=== PATIENT | male | born 1940 | race Caucasian/White ===

== ENCOUNTER 2017-05-09 10:32 | Emergency (ER) | payer OTHER, MEDICARE ==
[2017-05-09 11:18] VITALS: BP 153/63
--- NOTE | 2017-05-09 11:37 | UC ---
Knee Pain HPI - HPI Summary HPI Summary: RIGHT KNEE PAIN X 1 DAY TWISTED HIS RIGHT KNEE THIS MORNING PAIN WITH WALKING, NO SWELLING, NO REDNESS - History of Current Complaint Chief Complaint: UCLowerExtremity Stated Complaint: RIGHT KNEE INJURY Time Seen by Provider: 05/09/17 11:19 Hx Obtained From: Patient Onset/Duration: Sudden Onset, Lasting Days - 1 DAY, Still Present Severity Initially: Moderate Severity Currently: Moderate Character: Aching Aggravating Factor(s): Movement, Weight Bearing, Prolonged Standing, Stairs Alleviating Factor(s): Rest Associated Signs And Symptoms: Negative: Swelling, Redness, Bruising, Fever, Weakness, Numbness, Tingling - Allergies/Home Medications Allergies/Adverse Reactions: Allergies Allergy/AdvReac Type Severity Reaction Status Date / Time bee stings Allergy Severe swelling/re Uncoded 05/09/17 11:11 spiratory PMH/Surg Hx/FS Hx/Imm Hx Cardiovascular History: Cardiac Disease, Pacemaker/ICD - Surgical History Surgical History: Yes Surgery Procedure, Year, and Place: appendectomy. pacemaker - Family History Known Family History: Positive: Hypertension - Social History Alcohol Use: Weekly Alcohol Amount: once a week Substance Use Type: None Smoking Status (MU): Light Every Day Tobacco Smoker Type: Cigarettes Amount Used/How Often: 4-5 daily Household Exposure Type: Cigarettes - Immunization History Most Recent Influenza Vaccination: no Review of Systems Constitutional: Negative Skin: Negative Eyes: Negative ENT: Negative Respiratory: Negative All Other Systems Reviewed And Are Negative: Yes Physical Exam Triage Information Reviewed: Yes Appearance: Well-Appearing, No Pain Distress, Well-Nourished Vital Signs: Initial Vital Signs Temp 99 F 05/09/17 11:12 Pulse 93 05/09/17 11:12 Resp 18 05/09/17 11:12 BP 153/63 05/09/17 11:12 Pulse Ox 96 05/09/17 11:12 Vital Signs Reviewed: Yes Eyes: Positive: Conjunctiva Clear ENT: Positive: Normal ENT inspection, Hearing grossly normal, Pharynx normal Neck: Positive: Supple, Nontender, No Lymphadenopathy Respiratory: Positive: Chest non-tender, Lungs clear, Normal breath sounds Cardiovascular: Positive: RRR, No Murmur, Pulses Normal, Brisk Capillary Refill Abdominal Exam: Normal Musculoskeletal: Positive: Other: - RIGHT KNEE: NO EFFUSION, NO SWELLING, NO ERYTHEMA, + NO TENDERNESS, + PAIN WITH FLEXION AND EXTENSION , LIGAMENTS ARE STABLE Neurological Exam: Normal Neurological: Positive: Alert Knee Pain Course/Dx - Course Course Of Treatment: CONCERN ABOUT MENISCUS TEAR OF THE RIGHT KNEE. CONT. WITH REST, ICE, TYLENOL NEEDED FOR PAIN. FOLLOW UP WITH [facility]. PT. WANTS TO SEE HIS OWN [facility]TH[facility] - Differential Dx/Diagnosis Provider Diagnoses: LEFT KNEE PAIN Discharge - Discharge Plan Condition: Stable Disposition: HOME Patient Education Materials: Knee Pain (ED) Referrals: JULIANNE Rodríguez [Primary Care Provider] - Additional Instructions: CONCERN ABOUT MENISCUS TEAR OF THE RIGHT KNEE CONT. WITH REST, ICE, TYLENOL NEEDED FOR PAIN FOLLOW UP WITH [facility] PT. WANTS TO SEE HIS OWN [facility]TH[facility]
--- NOTE | 2017-05-09 12:04 | RAD ---
INDICATION: Right knee injury. TECHNIQUE: 4 views of the right knee were obtained. FINDINGS: The bones are in normal alignment. No joint effusion or fracture is seen. 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 IMPRESSION: NO EVIDENCE FOR FRACTURE.
== END 2017-05-09 12:18 | disposition home or self-care (01) ==
LOC: UCCORT 10:32
DX: M25.561 Pain in right knee (principal); I25.10 Atherosclerotic heart disease of native coronary artery without angina pectoris; Z95.0 Presence of cardiac pacemaker
CPT/HCPCS: 99211; G0463